=== PATIENT | male | born 1950 | race Caucasian/White ===

== ENCOUNTER 2024-05-11 10:27 | Emergency (ER) | payer MEDICARE, BC ==
[2024-05-11] MEDS: Lidocaine 2% with EPINEPHrine 1:100,000 20 ML MDV ONE (10:46)
[2024-05-11] MEDS: Lidocaine 2% with EPINEPHrine 1:100,000 20 ML MDV INJECT ONE (10:50)
[2024-05-11] MEDS: Bacitracin/Neomycin/Polymyxin B Oint 0.9 GM U/D Packet TOP ONE (11:30)
[2024-05-11] MEDS: Ondansetron 4 MG Tab.DIS PO ONE (12:00)
[2024-05-11] MEDS: Sulfamethoxazole/Trimethoprim 800-160 MG Tab PO SCH (12:05)
[2024-05-11] MEDS: Sulfamethoxazole/Trimethoprim 800-160 MG Tab ONE (12:13)
== END 2024-05-11 12:13 | disposition home or self-care (01) ==
LOC: KA.ED 10:27
DX: S01.01XA Laceration without foreign body of scalp, initial encounter (principal); Z88.0 Allergy status to penicillin; Z79.899 Other long term (current) drug therapy; W01.198A Fall on same level from slipping, tripping and stumbling with subsequent striking against other object, initial encounter
CPT/HCPCS: 12002; 12013; 70450; 99283; 99284; A9270-GY; J3490